=== PATIENT | female | born 1935 | race Caucasian/White ===

== ENCOUNTER 2020-04-29 07:54 | Emergency (ER) | payer BC ==
[2020-04-29 08:54] LABS: #Basophils 0.1 thou/uL (0.0-0.2); #Eosinphils 0.4 thou/uL (0.0-0.7); #Lymphocytes 2.1 thou/uL (1.20-3.40); #Monocytes 0.7 thou/uL (0.11-0.59); #Neutrophils 5.1 thou/uL (1.40-6.50); %Basophils 0.8 % (0.0-1.0); %Eosinophils 4.2 % (0.0-10.0); %Lymphocytes 25.3 % (21.0-51.0); %Monocytes 8.6 % (0.0-10.0); %Neutrophils 61.1 % (42.0-75.0); Hemoglobin 10.8 g/dL (12.0-16.0); Mean Corpuscular HGB CONC 31.9 g/dL (32.0-36.0); Mean Platelet Volume 7.5 fL (7.4-10.4); Platelet Count 248 thou/uL (130-400); RBC Distribution Width 13.6 % (11.5-14.5); Red Blood Cell (RBC) Count 3.71 mill/uL (4.20-5.40); White Blood Cell (WBC) Count 8.4 thou/uL (4.8-10.8)
[2020-04-29 09:08] LABS: ALT (SGPT) 14 U/L (8-55); AST (SGOT) 18 U/L (5-34); Albumin 3.8 g/dL (3.4-4.8); Alkaline Phosphatase 72 U/L (40-110); Anion Gap 16 mmol/L (10-20); BUN (Urea Nitrogen) 45 mg/dL (9.8-20.1); Bilirubin, Total 0.4 mg/dL (0.2-1.2); Calc. Creatinine Clearance 0 mL/min (70-130); Calcium 9.6 mg/dL (7.8-10.44); Carbon Dioxide 17 mmol/L (23-31); Chloride 111 mmol/L (98-107); Globulin 3.2 g/dL (2.4-3.5); Glucose 92 mg/dL (83-110); Potassium 5.1 mmol/L (3.5-5.1); Sodium 139 mmol/L (136-145)
--- NOTE | 2020-04-29 10:02 | ULT ---
Bilateral lower extremity venous Doppler ultrasound: 04/29/2020 COMPARISON: None HISTORY: Edema, swelling, pain, cramping assess for DVT TECHNIQUE: Multiplanar grayscale sonographic imaging of the venous structures of bilateral lower extr emities obtained with color flow and spectral analysis FINDINGS: Bilateral common femoral veins, greater saphenous veins, profunda femoral veins, femoral ve ins, popliteal veins, and posterior tibial veins are patent. There is normal blood flow, augmentation, and compression within the deep venous system bilaterally. No evidence for DVT on eithe r side IMPRESSION: No evidence for deep venous thrombosis of either lower extremity.
== END 2020-04-29 10:55 | disposition home or self-care (01) ==
LOC: ERS 07:54
DX: R25.2 Cramp and spasm (principal); Z79.899 Other long term (current) drug therapy; E03.9 Hypothyroidism, unspecified; I10 Essential (primary) hypertension
CPT/HCPCS: 36415; 80053; 82550; 83735; 85025; 93970

== ENCOUNTER 2020-09-04 15:32 | Outpatient (CLI) | payer BC | END 2020-09-04 15:33 | disposition home or self-care (01) | LOC: BICRAD 15:32 | PROVIDERS: ATTEND Internal Medicine Nephrology | DX: N18.4 Chronic kidney disease, stage 4 (severe) (principal); W07.XXXA Fall from chair, initial encounter | CPT/HCPCS: 72100 ==

== ENCOUNTER 2020-09-05 03:01 | Emergency (ER) | payer BC ==
[2020-09-05] MEDS ORDERED: Lidocaine 1% PF 5 ML VIAL ONE (03:19)
== END 2020-09-05 03:46 | disposition home or self-care (01) ==
LOC: ERS 03:01
DX: S70.01XA Contusion of right hip, initial encounter (principal); G89.29 Other chronic pain; M54.5 Low back pain; E03.9 Hypothyroidism, unspecified; I10 Essential (primary) hypertension; Z79.899 Other long term (current) drug therapy; W19.XXXA Unspecified fall, initial encounter
CPT/HCPCS: 20552

== ENCOUNTER 2020-09-20 01:51 | Emergency (ER) | payer BC ==
[2020-09-20] MEDS ORDERED: HYDROcodone/Acetaminophen 5/325 mg Tablet ONE (02:32)
== END 2020-09-20 02:43 | disposition home or self-care (01) ==
LOC: ERS 01:51
DX: G89.29 Other chronic pain (principal); M54.5 Low back pain; E03.9 Hypothyroidism, unspecified; I10 Essential (primary) hypertension
CPT/HCPCS: 99283

== ENCOUNTER 2020-09-24 06:42 | Emergency (ER) | payer BC ==
[2020-09-24] MEDS ORDERED: Acetaminophen 500 MG TAB ONE (07:44)
== END 2020-09-24 09:23 | disposition home or self-care (01) ==
LOC: ERS 06:42
DX: M47.816 Spondylosis without myelopathy or radiculopathy, lumbar region (principal); M54.6 Pain in thoracic spine; I10 Essential (primary) hypertension; E03.9 Hypothyroidism, unspecified
CPT/HCPCS: 72070; 72100

== ENCOUNTER 2020-09-27 20:37 | Emergency (ER) | payer BC ==
[2020-09-27 21:43] LABS: #Eosinphils 0.1 thou/uL (0.0-0.7); #Lymphocytes 2.3 thou/uL (1.20-3.40); #Neutrophils 14.1 thou/uL (1.40-6.50); %Basophils 0.3 % (0.0-1.0); %Eosinophils 0.7 % (0.0-10.0); %Lymphocytes 13.2 % (21.0-51.0); %Monocytes 5.8 % (0.0-10.0); Hemoglobin 11.4 g/dL (12.0-16.0); Mean Corpuscular HGB CONC 32.8 g/dL (32.0-36.0); Mean Corpuscular Hemoglobin 28.5 pg (27.0-31.0); Mean Platelet Volume 7.3 fL (7.4-10.4); Platelet Count 310 thou/uL (130-400); White Blood Cell (WBC) Count 17.6 thou/uL (4.8-10.8)
[2020-09-27 22:06] LABS: ALT (SGPT) 21 U/L (8-55); AST (SGOT) 26 U/L (5-34); Acetaminophen Less than 6.0 mcg/mL (10.0-30.0); Albumin 4.1 g/dL (3.4-4.8); Alcohol Less than 10 mg/dL (Less than 10); Alkaline Phosphatase 108 U/L (40-110); Anion Gap 18 mmol/L (10-20); BUN (Urea Nitrogen) 49 mg/dL (9.8-20.1); Bilirubin, Total 0.3 mg/dL (0.2-1.2); CK (CPK) 321 U/L (29-168); Calc. Creatinine Clearance 0 mL/min (70-130); Calcium 10.3 mg/dL (7.8-10.44); Carbon Dioxide 15 mmol/L (23-31); Chloride 115 mmol/L (98-107); Globulin 3.5 g/dL (2.4-3.5); Glucose 175 mg/dL (83-110); Potassium 5.2 mmol/L (3.5-5.1); Protein, Total 7.6 g/dL (5.8-8.1); Salicylate Less than 8.0 mg/dL (15.0-30.0); Sodium 143 mmol/L (136-145)
[2020-09-27 22:14] LABS: Bacteria/HPF None Seen HPF (None Seen); Bilirubin Negative (Negative); Blood, Urine Trace (Negative); Clarity Clear (Clear); Glucose, Urine (Dipstick) Normal (Negative); Ketone, Urine Negative (Negative); Leukocyte Negative Leu/uL (Negative); Nitrite Negative (Negative); Protein, Urine (Dipstick) 20 mg/dL (Neg-Trace); RBC/HPF 0-3 HPF (0-3); Specific Gravity, Urine 1.007 (1.002-1.036); Squamous Epithelial None Seen HPF (0-3); Urobilinogen Normal mg/dL (Less than 2); WBC/HPF 0-3 HPF (0-3); pH, Urine 6.5 (5.0-9.0)
[2020-09-27 22:23] LABS: Amphetamine Not Detected (NotDetected); Barbiturates Screen Not Detected (NotDetected); Benzodiazepine Screen Not Detected (NotDetected); Cocaine Metabolite Screen Not Detected (NotDetected); Medtox Control Line Valid? VALID (VALID); Medtox Reader # READER 4; Methadone Not Detected (NotDetected); Methamphetamine Not Detected (NotDetected); Opiate Screen Not Detected (NotDetected); Oxycodone Screen Not Detected (NotDetected); Phencyclidine (PCP) Not Detected (NotDetected); THC/Cannabinoid Screen Not Detected (NotDetected); Tricyclic Screen Not Detected (NotDetected)
[2020-09-28 01:31] LABS: #Eosinphils 0.1 thou/uL (0.0-0.7); #Lymphocytes 1.2 thou/uL (1.20-3.40); #Monocytes 0.8 thou/uL (0.11-0.59); #Neutrophils 10.4 thou/uL (1.40-6.50); %Basophils 0.2 % (0.0-1.0); %Eosinophils 0.4 % (0.0-10.0); %Lymphocytes 9.8 % (21.0-51.0); %Monocytes 6.1 % (0.0-10.0); %Neutrophils 83.4 % (42.0-75.0); Hemoglobin 10.6 g/dL (12.0-16.0); Mean Corpuscular HGB CONC 33.2 g/dL (32.0-36.0); Mean Corpuscular Hemoglobin 28.9 pg (27.0-31.0); Mean Corpuscular Volume 87.2 fL (78.0-98.0); Mean Platelet Volume 7.5 fL (7.4-10.4); Platelet Count 232 thou/uL (130-400); RBC Distribution Width 15.1 % (11.5-14.5); Red Blood Cell (RBC) Count 3.65 mill/uL (4.20-5.40); White Blood Cell (WBC) Count 12.4 thou/uL (4.8-10.8)
== END 2020-09-28 11:40 | disposition home or self-care (01) ==
LOC: ERS 20:37
DX: F31.9 Bipolar disorder, unspecified (principal); E03.9 Hypothyroidism, unspecified; I10 Essential (primary) hypertension
CPT/HCPCS: 36415; 51701; 71045; 80053; 80306; 80307; 81003; 81015; 82550; 84443; 85025; 93005

== ENCOUNTER 2020-10-01 00:04 | Emergency (ER) | payer BC ==
[2020-10-01] MEDS ORDERED: Acetaminophen 500 MG TAB ONE (00:30)
== END 2020-10-01 01:55 | disposition home or self-care (01) ==
LOC: ERS 00:04
DX: M25.551 Pain in right hip (principal); E03.9 Hypothyroidism, unspecified; I10 Essential (primary) hypertension
CPT/HCPCS: 72170; 99283

== ENCOUNTER 2020-10-02 05:18 | Emergency (ER) | payer BC | END 2020-10-02 05:44 | LOC: ERS 05:18 | DX: M25.551 Pain in right hip (principal); G89.29 Other chronic pain; E03.9 Hypothyroidism, unspecified; I10 Essential (primary) hypertension | CPT/HCPCS: 99281 ==

== ENCOUNTER 2020-10-13 09:33 | Inpatient (IN) | payer OTHER, BC, MEDICARE ==
[2020-10-13] MEDS ORDERED: Morphine 4 MG/ML VIAL ONE (10:06)
[2020-10-13] MEDS ORDERED: Ondansetron PF 4 MG/2 ML Vial ONE (10:06)
[2020-10-13 10:23] LABS: #Lymphocytes 0.9 thou/uL (1.20-3.40); #Monocytes 0.7 thou/uL (0.11-0.59); #Neutrophils 11.6 thou/uL (1.40-6.50); %Basophils 0.1 % (0.0-1.0); %Eosinophils 0.3 % (0.0-10.0); %Lymphocytes 6.9 % (21.0-51.0); %Monocytes 5.2 % (0.0-10.0); %Neutrophils 87.4 % (42.0-75.0); Hemoglobin 10.9 g/dL (12.0-16.0); Mean Corpuscular HGB CONC 33.1 g/dL (32.0-36.0); Mean Corpuscular Hemoglobin 29.2 pg (27.0-31.0); Mean Platelet Volume 7.1 fL (7.4-10.4); Platelet Count 331 thou/uL (130-400); RBC Distribution Width 14.8 % (11.5-14.5); Red Blood Cell (RBC) Count 3.76 mill/uL (4.20-5.40); White Blood Cell (WBC) Count 13.3 thou/uL (4.8-10.8)
[2020-10-13 10:45] LABS: ALT (SGPT) 15 U/L (8-55); AST (SGOT) 23 U/L (5-34); Albumin 3.7 g/dL (3.4-4.8); Alkaline Phosphatase 161 U/L (40-110); Anion Gap 14 mmol/L (10-20); BUN (Urea Nitrogen) 40 mg/dL (9.8-20.1); Bilirubin, Total 0.5 mg/dL (0.2-1.2); CK (CPK) 414 U/L (29-168); Calc. Creatinine Clearance 0 mL/min (70-130); Calcium 9.7 mg/dL (7.8-10.44); Carbon Dioxide 20 mmol/L (23-31); Chloride 113 mmol/L (98-107); Globulin 3.3 g/dL (2.4-3.5); Glucose 138 mg/dL (83-110); Potassium 4.6 mmol/L (3.5-5.1); Sodium 142 mmol/L (136-145)
[2020-10-13] MEDS ORDERED: cefTRIAXone\\ROCEPHIN 2 GM VIAL ONE (11:44)
[2020-10-13 12:13] LABS: Bilirubin Negative (Negative); Blood, Urine Small (Negative); Glucose, Urine (Dipstick) Negative (Negative); Ketone, Urine Negative (Negative); Leukocyte Negative (Negative); Nitrite Negative (Negative); Protein, Urine (Dipstick) Negative (Neg-Trace); Urobilinogen 0.2 mg/dL (Less than 2); pH, Urine 6.5 (5.0-9.0)
[2020-10-13 12:17] LABS: Bacteria/HPF None Seen HPF (None Seen); Clarity Hazy (Clear); RBC/HPF 0-3 HPF (0-3); Specific Gravity, Urine 1.008 (1.002-1.036); Squamous Epithelial None Seen HPF (0-3); WBC/HPF 0-3 HPF (0-3)
[2020-10-13] MEDS ORDERED: Ondansetron PF 4 MG/2 ML Vial IVP PRN (13:17)
[2020-10-13] MEDS ORDERED: Sodium Chloride 0.9% 1,000 ML IV SCH (13:17)
[2020-10-13] MEDS ORDERED: Dextrose 5% in Water 1,000 ML IV PRN (13:17)
[2020-10-13] MEDS ORDERED: Cyclobenzaprine 10 MG TAB PO PRN (13:17)
[2020-10-13] MEDS ORDERED: Dextrose 50% Abboject 50 ML SYRINGE SLOW IVP PRN (13:17)
[2020-10-13] MEDS ORDERED: Ondansetron ODT 4 MG TAB PO PRN (13:17)
[2020-10-13 13:58] LABS: SARS-CoV-2 NAA Rapid Test Not Detected (NotDetected)
[2020-10-13 16:42] VITALS: BMI 26.6
[2020-10-13] MEDS: Acetaminophen 500 MG TAB PO SCH ×2 (16:49→18:17)
[2020-10-13] MEDS: Melatonin 3 MG TAB PO SCH (20:32)
[2020-10-13] MEDS: Levothyroxine Sodium 75 MCG TAB PO SCH (20:32)
[2020-10-13] MEDS: traMADol HCl 50 MG TAB PO SCH (20:32)
[2020-10-13] MEDS: hydrALAZINE 20 MG/ML VIAL SLOW IVP PRN (20:32)
[2020-10-13] MEDS ORDERED: Famotidine 20 MG TAB PO SCH (21:00)
[2020-10-14] MEDS: Acetaminophen 500 MG TAB PO SCH ×4 (02:27→18:20)
[2020-10-14 05:45] LABS: #Basophils 0.1 thou/uL (0.0-0.2); #Eosinphils 0.1 thou/uL (0.0-0.7); #Lymphocytes 1.2 thou/uL (1.20-3.40); #Monocytes 0.9 thou/uL (0.11-0.59); #Neutrophils 9.2 thou/uL (1.40-6.50); %Basophils 0.6 % (0.0-1.0); %Eosinophils 1.2 % (0.0-10.0); %Lymphocytes 10.6 % (21.0-51.0); %Monocytes 7.6 % (0.0-10.0); %Neutrophils 79.9 % (42.0-75.0); Hemoglobin 9.6 g/dL (12.0-16.0); Mean Corpuscular HGB CONC 32.5 g/dL (32.0-36.0); Mean Corpuscular Hemoglobin 28.9 pg (27.0-31.0); Mean Corpuscular Volume 88.9 fL (78.0-98.0); Mean Platelet Volume 7.1 fL (7.4-10.4); Platelet Count 289 thou/uL (130-400); RBC Distribution Width 14.9 % (11.5-14.5); Red Blood Cell (RBC) Count 3.34 mill/uL (4.20-5.40); White Blood Cell (WBC) Count 11.5 thou/uL (4.8-10.8)
[2020-10-14 06:14] LABS: Anion Gap 11 mmol/L (10-20); BUN (Urea Nitrogen) 36 mg/dL (9.8-20.1); CK (CPK) 229 U/L (29-168); Calc. Creatinine Clearance 23 mL/min (70-130); Calcium 9.1 mg/dL (7.8-10.44); Carbon Dioxide 21 mmol/L (23-31); Chloride 116 mmol/L (98-107); Glucose 101 mg/dL (83-110); Potassium 5.2 mmol/L (3.5-5.1); Sodium 143 mmol/L (136-145)
[2020-10-14] MEDS: Calcium Carbonate 600 MG + Vit D TAB PO SCH (08:09)
[2020-10-14] MEDS: traMADol HCl 50 MG TAB PO SCH ×2 (08:09→21:54)
[2020-10-14] MEDS: Doxazosin Mesylate 1 MG TAB PO SCH (08:10)
[2020-10-14] MEDS: Famotidine 20 MG TAB PO SCH (08:10)
[2020-10-14] MEDS: Ferrous Sulfate 325 MG TAB PO SCH (08:10)
[2020-10-14] MEDS ORDERED: cefTRIAXone\\ROCEPHIN 1 GM in Sodium Chloride 0.9% 100 ML IVPB SCH (12:00)
[2020-10-14] MEDS: Melatonin 3 MG TAB PO SCH (21:53)
[2020-10-14] MEDS: Levothyroxine Sodium 75 MCG TAB PO SCH (21:53)
[2020-10-15] MEDS: Acetaminophen 500 MG TAB PO SCH ×4 (00:38→18:16)
[2020-10-15 05:51] LABS: #Eosinphils 0.4 thou/uL (0.0-0.7); #Lymphocytes 1.3 thou/uL (1.20-3.40); #Monocytes 0.8 thou/uL (0.11-0.59); #Neutrophils 6.6 thou/uL (1.40-6.50); %Basophils 0.4 % (0.0-1.0); %Eosinophils 3.9 % (0.0-10.0); %Lymphocytes 14.2 % (21.0-51.0); %Monocytes 8.4 % (0.0-10.0); %Neutrophils 73.1 % (42.0-75.0); Hemoglobin 9.1 g/dL (12.0-16.0); Mean Corpuscular Hemoglobin 28.5 pg (27.0-31.0); Mean Corpuscular Volume 89.1 fL (78.0-98.0); Mean Platelet Volume 7.1 fL (7.4-10.4); Platelet Count 282 thou/uL (130-400); RBC Distribution Width 14.8 % (11.5-14.5); Red Blood Cell (RBC) Count 3.21 mill/uL (4.20-5.40)
[2020-10-15 06:12] LABS: Anion Gap 10 mmol/L (10-20); BUN (Urea Nitrogen) 42 mg/dL (9.8-20.1); Calc. Creatinine Clearance 21 mL/min (70-130); Calcium 8.6 mg/dL (7.8-10.44); Carbon Dioxide 21 mmol/L (23-31); Chloride 109 mmol/L (98-107); Glucose 85 mg/dL (83-110); Magnesium 1.9 mg/dL (1.6-2.6); Phosphorus 4.1 mg/dL (2.3-4.7); Potassium 5.2 mmol/L (3.5-5.1); Sodium 135 mmol/L (136-145)
[2020-10-15] MEDS: Ferrous Sulfate 325 MG TAB PO SCH (08:52)
[2020-10-15] MEDS: Doxazosin Mesylate 1 MG TAB PO SCH (08:52)
[2020-10-15] MEDS: Calcium Carbonate 600 MG + Vit D TAB PO SCH (08:52)
[2020-10-15] MEDS: Famotidine 20 MG TAB PO SCH (08:52)
[2020-10-15] MEDS: traMADol HCl 50 MG TAB PO SCH ×2 (08:53→20:22)
[2020-10-15] MEDS ORDERED: Magnesium 2 GM/50 ML 2 GM in Premix Bag 1 BAG IVPB SCH (13:15)
[2020-10-15] MEDS ORDERED: Sodium Chloride 0.9% 500 ML IV SCH (13:30)
[2020-10-15] MEDS: Levothyroxine Sodium 75 MCG TAB PO SCH (20:21)
[2020-10-15] MEDS: Melatonin 3 MG TAB PO SCH (20:21)
[2020-10-16] MEDS: Acetaminophen 500 MG TAB PO SCH ×4 (00:55→18:29)
[2020-10-16 05:09] LABS: #Eosinphils 0.3 thou/uL (0.0-0.7); #Lymphocytes 1.4 thou/uL (1.20-3.40); #Monocytes 0.8 thou/uL (0.11-0.59); #Neutrophils 7.8 thou/uL (1.40-6.50); %Basophils 0.3 % (0.0-1.0); %Eosinophils 2.8 % (0.0-10.0); %Lymphocytes 13.2 % (21.0-51.0); %Monocytes 8.1 % (0.0-10.0); %Neutrophils 75.6 % (42.0-75.0); Hemoglobin 9.8 g/dL (12.0-16.0); Mean Corpuscular HGB CONC 32.4 g/dL (32.0-36.0); Mean Corpuscular Hemoglobin 28.8 pg (27.0-31.0); Mean Platelet Volume 7.3 fL (7.4-10.4); Platelet Count 288 thou/uL (130-400); RBC Distribution Width 14.6 % (11.5-14.5); Red Blood Cell (RBC) Count 3.41 mill/uL (4.20-5.40); White Blood Cell (WBC) Count 10.3 thou/uL (4.8-10.8)
[2020-10-16 05:33] LABS: Anion Gap 14 mmol/L (10-20); BUN (Urea Nitrogen) 50 mg/dL (9.8-20.1); Calc. Creatinine Clearance 16 mL/min (70-130); Calcium 9.3 mg/dL (7.8-10.44); Carbon Dioxide 15 mmol/L (23-31); Chloride 109 mmol/L (98-107); Glucose 166 mg/dL (83-110); Magnesium 2.4 mg/dL (1.6-2.6); Phosphorus 3.7 mg/dL (2.3-4.7); Potassium 5.2 mmol/L (3.5-5.1); Sodium 133 mmol/L (136-145)
[2020-10-16] MEDS: hydrALAZINE 20 MG/ML VIAL SLOW IVP PRN ×2 (05:34→16:04)
[2020-10-16] MEDS: traMADol HCl 50 MG TAB PO SCH (09:23)
[2020-10-16] MEDS: Calcium Carbonate 600 MG + Vit D TAB PO SCH (09:24)
[2020-10-16] MEDS: Doxazosin Mesylate 1 MG TAB PO SCH ×2 (09:25→21:58)
[2020-10-16] MEDS: Ferrous Sulfate 325 MG TAB PO SCH (09:25)
[2020-10-16] MEDS: Famotidine 20 MG TAB PO SCH (09:25)
[2020-10-16] MEDS ORDERED: Sodium Chloride 0.9% 1,000 ML IV SCH (16:45)
[2020-10-16] MEDS: Melatonin 3 MG TAB PO SCH (21:33)
[2020-10-16] MEDS: Levothyroxine Sodium 75 MCG TAB PO SCH (21:33)
[2020-10-17] MEDS: Acetaminophen 500 MG TAB PO SCH ×2 (00:20→07:15)
[2020-10-17] MEDS: Calcium Carbonate 600 MG + Vit D TAB PO SCH (10:43)
[2020-10-17] MEDS: Ferrous Sulfate 325 MG TAB PO SCH (10:43)
[2020-10-17] MEDS: Famotidine 20 MG TAB PO SCH (10:44)
[2020-10-17] MEDS: Acetaminophen/Codeine 30-300mg Tablet PO SCH ×2 (10:51→18:21)
[2020-10-17 11:43] LABS: Phosphorus 3.9 mg/dL (2.3-4.7)
[2020-10-17 11:44] LABS: Anion Gap 13 mmol/L (10-20); BUN (Urea Nitrogen) 50 mg/dL (9.8-20.1); Calc. Creatinine Clearance 16 mL/min (70-130); Calcium 9.9 mg/dL (7.8-10.44); Carbon Dioxide 18 mmol/L (23-31); Chloride 112 mmol/L (98-107); Glucose 115 mg/dL (83-110); Potassium 4.8 mmol/L (3.5-5.1); Sodium 138 mmol/L (136-145)
[2020-10-17] MEDS: Acetaminophen 325 MG TAB PO SCH ×3 (13:12→23:59)
[2020-10-17] MEDS: Levothyroxine Sodium 75 MCG TAB PO SCH (20:19)
[2020-10-17] MEDS: Doxazosin Mesylate 1 MG TAB PO SCH (20:20)
[2020-10-17] MEDS: Melatonin 3 MG TAB PO SCH (20:21)
[2020-10-18] MEDS: Acetaminophen/Codeine 30-300mg Tablet PO SCH ×5 (05:14→21:31)
[2020-10-18] MEDS: Acetaminophen 325 MG TAB PO SCH ×3 (05:14→18:15)
[2020-10-18] MEDS: Calcium Carbonate 600 MG + Vit D TAB PO SCH (08:46)
[2020-10-18] MEDS: Ferrous Sulfate 325 MG TAB PO SCH (08:46)
[2020-10-18] MEDS: Famotidine 20 MG TAB PO SCH (08:46)
[2020-10-18] MEDS: Levothyroxine Sodium 75 MCG TAB PO SCH (20:18)
[2020-10-18] MEDS: Melatonin 3 MG TAB PO SCH (20:18)
[2020-10-18] MEDS: Doxazosin Mesylate 1 MG TAB PO SCH (20:19)
[2020-10-19] MEDS: Acetaminophen 325 MG TAB PO SCH ×5 (05:25→23:17)
[2020-10-19] MEDS: Acetaminophen/Codeine 30-300mg Tablet PO SCH ×4 (05:37→23:15)
[2020-10-19] MEDS: Ferrous Sulfate 325 MG TAB PO SCH (09:58)
[2020-10-19] MEDS: Calcium Carbonate 600 MG + Vit D TAB PO SCH (09:58)
[2020-10-19] MEDS ORDERED: Senokot 8.6 MG TAB PO PRN (13:29)
[2020-10-19] MEDS: Doxazosin Mesylate 1 MG TAB PO SCH (21:34)
[2020-10-19] MEDS: Levothyroxine Sodium 75 MCG TAB PO SCH (21:34)
[2020-10-19] MEDS: Melatonin 3 MG TAB PO SCH (21:34)
[2020-10-20] MEDS: Acetaminophen/Codeine 30-300mg Tablet PO SCH ×4 (05:33→23:30)
[2020-10-20] MEDS: Acetaminophen 325 MG TAB PO SCH ×4 (05:33→23:31)
[2020-10-20] MEDS ORDERED: Naloxone HCl 0.4 mg/ml Vial ONE (09:39)
[2020-10-20 09:47] LABS: Actual Bicarbonate (HCO3a) 21.9 mEq/L (22-28); Base Excess (BEa) -2.3 mEq/L (-2.0 to +3.0); CO2 Tension 35.5 mmHg (35.0-45.0); Calcium, Ionized (arterial) 1.35 mmol/L (1.12-1.30); Carboxyhemoglobin (COHb) 0.5 gm% (0.0-3.0); Hemoglobin (Hb) 10.6 g/dL (12.0-16.0); O2 Tension (PaO2), arterial 74.8 mmHg (> 60.0); Potassium - ABG Lab 5.23 mmol/L (3.70-5.30); pH, Arterial 7.41 (7.35-7.45)
[2020-10-20 09:48] LABS: ALV-art Gradient 80.465 mmHg (0-20); Puncture Site RRA
[2020-10-20 09:57] LABS: #Basophils 0.1 thou/uL (0.0-0.2); #Eosinphils 0.5 thou/uL (0.0-0.7); #Lymphocytes 2.6 thou/uL (1.20-3.40); #Monocytes 0.8 thou/uL (0.11-0.59); #Neutrophils 6.3 thou/uL (1.40-6.50); %Basophils 0.7 % (0.0-1.0); %Eosinophils 4.4 % (0.0-10.0); %Lymphocytes 25.7 % (21.0-51.0); %Monocytes 7.4 % (0.0-10.0); %Neutrophils 61.9 % (42.0-75.0); Hemoglobin 9.9 g/dL (12.0-16.0); Mean Corpuscular HGB CONC 32.3 g/dL (32.0-36.0); Mean Corpuscular Hemoglobin 28.6 pg (27.0-31.0); Mean Corpuscular Volume 88.5 fL (78.0-98.0); Mean Platelet Volume 7.1 fL (7.4-10.4); Platelet Count 300 thou/uL (130-400); RBC Distribution Width 14.3 % (11.5-14.5); Red Blood Cell (RBC) Count 3.45 mill/uL (4.20-5.40); White Blood Cell (WBC) Count 10.3 thou/uL (4.8-10.8)
[2020-10-20 10:13] LABS: Lactic Acid 0.5 mmol/L (0.5-2.2)
[2020-10-20] MEDS: hydrALAZINE 20 MG/ML VIAL SLOW IVP PRN (10:15)
[2020-10-20 10:17] LABS: Anion Gap 12 mmol/L (10-20); BUN (Urea Nitrogen) 43 mg/dL (9.8-20.1); Calc. Creatinine Clearance 19 mL/min (70-130); Calcium 9.7 mg/dL (7.8-10.44); Carbon Dioxide 19 mmol/L (23-31); Chloride 107 mmol/L (98-107); Glucose 313 mg/dL (83-110); Magnesium 2.1 mg/dL (1.6-2.6); Potassium 5.3 mmol/L (3.5-5.1); Sodium 133 mmol/L (136-145)
[2020-10-20] MEDS: Ferrous Sulfate 325 MG TAB PO SCH (10:28)
[2020-10-20] MEDS: Calcium Carbonate 600 MG + Vit D TAB PO SCH (10:29)
[2020-10-20] MEDS: Polyethylene Glycol 3350 17 GM Packet PO SCH (10:30)
[2020-10-20] MEDS ORDERED: Insulin Regular 300 UNITS/3 ML VIAL IVP SCH (11:15)
[2020-10-20 12:18] LABS: Phosphorus 3.5 mg/dL (2.3-4.7)
[2020-10-20] MEDS ORDERED: Sodium Chloride 0.9% 1,000 ML IV SCH (13:45)
[2020-10-20] MEDS: Melatonin 3 MG TAB PO SCH (23:30)
[2020-10-20] MEDS: Doxazosin Mesylate 1 MG TAB PO SCH (23:31)
[2020-10-20] MEDS: Levothyroxine Sodium 75 MCG TAB PO SCH (23:31)
[2020-10-21] MEDS: Acetaminophen/Codeine 30-300mg Tablet PO SCH ×4 (05:14→22:43)
[2020-10-21] MEDS: Acetaminophen 325 MG TAB PO SCH ×4 (05:14→21:56)
[2020-10-21 06:05] LABS: #Eosinphils 0.3 thou/uL (0.0-0.7); #Lymphocytes 1.2 thou/uL (1.20-3.40); #Monocytes 0.7 thou/uL (0.11-0.59); #Neutrophils 5.6 thou/uL (1.40-6.50); %Basophils 0.6 % (0.0-1.0); %Eosinophils 4.3 % (0.0-10.0); %Lymphocytes 15.6 % (21.0-51.0); %Monocytes 8.4 % (0.0-10.0); %Neutrophils 71.2 % (42.0-75.0); Hemoglobin 9.4 g/dL (12.0-16.0); Mean Corpuscular HGB CONC 31.5 g/dL (32.0-36.0); Mean Corpuscular Hemoglobin 28.2 pg (27.0-31.0); Mean Corpuscular Volume 89.6 fL (78.0-98.0); Platelet Count 295 thou/uL (130-400); RBC Distribution Width 14.2 % (11.5-14.5); Red Blood Cell (RBC) Count 3.32 mill/uL (4.20-5.40); White Blood Cell (WBC) Count 7.9 thou/uL (4.8-10.8)
[2020-10-21 06:18] LABS: Phosphorus 3.9 mg/dL (2.3-4.7)
[2020-10-21 06:21] LABS: Anion Gap 12 mmol/L (10-20); BUN (Urea Nitrogen) 45 mg/dL (9.8-20.1); Calc. Creatinine Clearance 19 mL/min (70-130); Calcium 9.5 mg/dL (7.8-10.44); Carbon Dioxide 20 mmol/L (23-31); Chloride 111 mmol/L (98-107); Glucose 102 mg/dL (83-110); Magnesium 2.1 mg/dL (1.6-2.6); Potassium 5.1 mmol/L (3.5-5.1); Sodium 138 mmol/L (136-145)
[2020-10-21] MEDS: Polyethylene Glycol 3350 17 GM Packet PO SCH (09:23)
[2020-10-21] MEDS: Calcium Carbonate 600 MG + Vit D TAB PO SCH (09:24)
[2020-10-21] MEDS: Ferrous Sulfate 325 MG TAB PO SCH (09:24)
[2020-10-21] MEDS: Heparin 5,000 UNITS/ML VIAL SC SCH ×2 (09:28→21:50)
[2020-10-21] MEDS ORDERED: Naloxone HCl 0.4 mg/ml Vial ONE (09:34)
[2020-10-21] MEDS ORDERED: Dextrose 50% Abboject 50 ML SYRINGE ONE (09:34)
[2020-10-21 16:23] LABS: Bilirubin Negative (Negative); Blood, Urine 1+ (Negative); Clarity Clear (Clear); Glucose, Urine (Dipstick) Normal (Negative); Ketone, Urine Negative (Negative); Leukocyte 500 Leu/uL (Negative); Nitrite Negative (Negative); Protein, Urine (Dipstick) Negative (Neg-Trace); RBC/HPF 0-3 HPF (0-3); Specific Gravity, Urine 1.006 (1.002-1.036); Squamous Epithelial None Seen HPF (0-3); Urobilinogen Normal mg/dL (Less than 2)
[2020-10-21 16:27] LABS: Bacteria/HPF 1+ HPF (None Seen)
[2020-10-21] MEDS: Levothyroxine Sodium 75 MCG TAB PO SCH (21:49)
[2020-10-21] MEDS: Melatonin 3 MG TAB PO SCH (21:49)
[2020-10-21] MEDS: Doxazosin Mesylate 1 MG TAB PO SCH (21:50)
[2020-10-22] MEDS: Acetaminophen 325 MG TAB PO SCH ×4 (05:35→21:22)
[2020-10-22] MEDS: Acetaminophen/Codeine 30-300mg Tablet PO SCH ×4 (05:36→22:41)
[2020-10-22] MEDS: Calcium Carbonate 600 MG + Vit D TAB PO SCH (08:24)
[2020-10-22] MEDS: Ferrous Sulfate 325 MG TAB PO SCH (08:24)
[2020-10-22] MEDS: Polyethylene Glycol 3350 17 GM Packet PO SCH (08:24)
[2020-10-22] MEDS: Heparin 5,000 UNITS/ML VIAL SC SCH ×2 (08:24→21:19)
[2020-10-22] MEDS: Doxazosin Mesylate 1 MG TAB PO SCH (21:19)
[2020-10-22] MEDS: Melatonin 3 MG TAB PO SCH (21:19)
[2020-10-22] MEDS: Levothyroxine Sodium 75 MCG TAB PO SCH (21:19)
[2020-10-23] MEDS: Acetaminophen 325 MG TAB PO SCH ×3 (05:41→17:49)
[2020-10-23] MEDS: Acetaminophen/Codeine 30-300mg Tablet PO SCH ×3 (05:43→17:50)
[2020-10-23] MEDS: Calcium Carbonate 600 MG + Vit D TAB PO SCH (08:37)
[2020-10-23] MEDS: Ferrous Sulfate 325 MG TAB PO SCH (08:37)
[2020-10-23] MEDS: Heparin 5,000 UNITS/ML VIAL SC SCH (08:38)
[2020-10-23] MEDS: Polyethylene Glycol 3350 17 GM Packet PO SCH (13:34)
[2020-10-23 16:33] VITALS: BP 148/65; TEMP 97.5
== END 2020-10-23 18:06 | DRG 551 ==
LOC: ERS 09:33 → SURG A 12:45
PROVIDERS: ADMIT Surgery; ATTEND Surgery
PROC: 0T9B70Z Drainage of Bladder with Drainage Device, Via Natural or Artificial Opening (ICD-10-PCS; principal; 2020-10-20)
DX: S12.100A Unspecified displaced fracture of second cervical vertebra, initial encounter for closed fracture (principal); J15.6 Pneumonia due to other Gram-negative bacteria; Z20.822 Contact with and (suspected) exposure to COVID-19; S32.049A Unspecified fracture of fourth lumbar vertebra, initial encounter for closed fracture; S32.059A Unspecified fracture of fifth lumbar vertebra, initial encounter for closed fracture; N18.4 Chronic kidney disease, stage 4 (severe); N17.9 Acute kidney failure, unspecified; F31.30 Bipolar disorder, current episode depressed, mild or moderate severity, unspecified; W01.198A Fall on same level from slipping, tripping and stumbling with subsequent striking against other object, initial encounter; M85.80 Other specified disorders of bone density and structure, unspecified site; M81.0 Age-related osteoporosis without current pathological fracture; Z53.29 Procedure and treatment not carried out because of patient's decision for other reasons; E03.9 Hypothyroidism, unspecified; I12.9 Hypertensive chronic kidney disease with stage 1 through stage 4 chronic kidney disease, or unspecified chronic kidney disease; G89.29 Other chronic pain; F41.9 Anxiety disorder, unspecified; R41.82 Altered mental status, unspecified; Z79.899 Other long term (current) drug therapy; Z90.710 Acquired absence of both cervix and uterus
CPT/HCPCS: 0240U; 36415; 36416; 36600; 70450; 70551; 71045; 72125; 72131; 80048; 80053; 81003; 81015; 82550; 82805; 83605; 83735; 84100; 84146; 84484; 85025; 87040; 93005; 93010; 94640; 95712; 95816; 95819; 95957; 96365; 96375; G0390; J0360; J0696; J1644; J2270; J2310; J2405; J3475; J7620

== ENCOUNTER 2020-11-05 09:54 | Outpatient (CLI) | payer BC, MEDICARE | END 2020-11-05 09:55 | disposition home or self-care (01) | LOC: TBSIIMAG 09:54 | PROVIDERS: ATTEND Neurological Surgery | DX: S32.049A Unspecified fracture of fourth lumbar vertebra, initial encounter for closed fracture (principal); S32.059A Unspecified fracture of fifth lumbar vertebra, initial encounter for closed fracture; S12.100A Unspecified displaced fracture of second cervical vertebra, initial encounter for closed fracture; M43.12 Spondylolisthesis, cervical region; M43.16 Spondylolisthesis, lumbar region | CPT/HCPCS: 72040; 72100 ==

== ENCOUNTER 2020-12-06 12:27 | Outpatient (CLI) | payer BC | END 2020-12-06 12:28 | disposition home or self-care (01) | LOC: BICCT 12:27 | PROVIDERS: ATTEND Neurological Surgery | DX: S12.9XXA Fracture of neck, unspecified, initial encounter (principal); S22.008A Other fracture of unspecified thoracic vertebra, initial encounter for closed fracture | CPT/HCPCS: 72125; 72131 ==

== ENCOUNTER 2021-04-23 13:15 | Outpatient (CLI) | payer BC | END 2021-04-23 13:16 | disposition home or self-care (01) | LOC: BICULT 13:15 | PROVIDERS: ATTEND Urology | DX: C64.1 Malignant neoplasm of right kidney, except renal pelvis (principal); N18.9 Chronic kidney disease, unspecified; N28.1 Cyst of kidney, acquired | CPT/HCPCS: 76770 ==